=== PATIENT | female | born 1945 | race Caucasian/White ===

== ENCOUNTER 2017-04-07 07:35 | Day surgery (SDC) | payer MEDICARE ==
[~2017-04-07] VITALS: Ht 165.1 cm; Wt 59.4 kg
--- NOTE | ~2017-04-07 | HP ---
PATIENT: JULIA CORREA MEDICAL RECORD: [id number] ACCOUNT: [id number] LOCATION:[facility] : 45 ADMISSION DATE: 04/07/17 HISTORY AND PHYSICAL EXAMINATION History and Physical Addendum Has a history and physical on the chart. I have discussed the risks, possible complications and alternatives to the procedure with the patient. She elects to proceed. The history and physical examination is unchanged from the one in the office. TRANSINT:[id number] Voice Confirmation ID: [id number] DOCUMENT ID: [id number] RAMON ALEXIS MD CC: [id number] DICTATION DATE: 04/07/17 1006 PATHOLOGY TEACHER: 04/07/17 1041 [facility] [address] [id number]
--- NOTE | ~2017-04-07 | OP ---
PATIENT NAME: JULIA CORREA MEDICAL RECORD: [id number] :45 LOCATION:D.OPS ADMISSION DATE: SURGEON: RAMON ALEXIS MD DATE OF OPERATION: 04/07/2017 PREOPERATIVE DIAGNOSIS: Pedunculated polyp at 26 cm. POSTOPERATIVE DIAGNOSIS: Pedunculated polyp at 26 cm. PROCEDURES: 1. Total colonoscopy to cecum. 2. Snare polypectomy of a large pedunculated polyp 2.3 cm, at 26 cm from the anus. SURGEON: Ramon Alexis MD HEALTH OFFICER: None. BLOOD LOSS: Minimal. ANESTHESIA: General. COMPLICATIONS: None. OPERATIVE COURSE: The patient was conveyed to the operating room electively on 04/07/2017. This procedure was performed in the operating room as it was felt that the argon plasma organizational psychologist was going to need to be utilized. General anesthesia was induced by the anesthesia staff. The patient was placed in the Lowery position. A digital rectal examination was performed. A colonoscope was inserted through the anus. It was easily advanced to the cecum. The patient did have moderate left-sided diverticulosis. The prep was adequate. I slowly withdrew the endoscope. I irrigated and aspirated extensively. The pullback was greater than an 18-minute pullback. At 26 cm, a pedunculated polyp was noted. I advanced an endoscopic snare. I wrapped around the base of the polyp and then performed a snare polypectomy. I advanced the argon plasma organizational psychologist. I then ablated the base of the polyp. I then advanced an endoscopic retrieval net and grasped the polyp that had been removed under direct vision. It appeared that the entire polyp was removed. I then readvanced the endoscope to 26 cm. I withdrew it slowly. A retroflexed view was obtained in the rectum. I then unretroflexed the scope and removed it under direct vision. The patient was then extubated and conveyed to post-anesthesia care unit where she was in stable condition. She will be dismissed home and I will see her in the office in 2-3 weeks. TRANSINT:[id number] Voice Confirmation ID: [id number] DOCUMENT ID: [id number] OPERATIVE REPORT [id number] JULIA CORREA RAMON ALEXIS MD CC: LINDA SHAW MD and ALE BLOOM MD [id number] DICTATION DATE: 04/07/17 1011 AUTHOR AGENT: 04/07/17 1748 [facility] 04/07/17 [facility] [address] [id number]
[~2017-04-07 07:35] MED LIST: ADVAIR HFA [SP]12 GM INH; CALTRATE 600 M600 M1 PO; CENTRUM SILVER1 TA2 PO; DUONEB 2.5-0.5 M3 ML UPD; EZFE 200200 MG PO; NUCYNTA75 MG PO; PEPCID20 MG PO; POTASSIUM OTC PO; SYMBICORT 16010.2 GM INH; TUMS500 MG PO; ULTRAM50 MG PO; VALIUM5 MG; VALIUM5 MG PO; VITAMIN D10000 UNI1 PO
[2017-04-07 08:19] VITALS: BP 102/62; Ht 165.1 cm; Wt 59.4 kg
[2017-04-07 08:57] LABS: BASOPHILS 0.3 % (0-2); EOSINOPHILS 0.5 % (0-7); HEMATOCRIT 41.3 % (36.0-48.0); HEMOGLOBIN 12.9 g/dL (12-16); IMMATURE GRANULOCYTES 0.3 % (0-5); LYMPHOCYTES 20.3 % (15-50); MCH 25.7 pg (26.0-34.0); MCHC 31.2 g/dL (31.0-37.0); MCV 82.3 fL (80.0-100.0); MEAN PLATELET VOLUME 9.2 fL (7.4-10.4); NEUTROPHILS 69.6 % (40-80); PLATELET COUNT 337 10x3/uL (130-400); RBC 5.02 10x6/uL (4.00-5.40); RDW 15.3 % (11.5-14.5); WBC 7.8 10x3/uL (4.8-10.8)
[2017-04-07 09:05] LABS: APTT 30.4 SECONDS (22.8-39.4); INR 0.97 (0.85-1.17); PROTIME 12.7 SECONDS (11.6-15.0)
[2017-04-07 09:08] LABS: ALBUMIN 3.8 g/dL (3.4-5.0); ANION GAP 15.1 mmol/L (8-16); BILIRUBIN - TOTAL 0.4 mg/dL (0.2-1.3); CALCIUM 9.7 mg/dL (8.5-10.1); CARBON DIOXIDE 25.8 mmol/L (21.0-32.0); CREATININE - SERUM 1.2 mg/dL (0.6-1.3); POTASSIUM - SERUM 3.9 mmol/L (3.5-5.1); PROTEIN - SERUM 8.7 g/dL (6.4-8.2)
== END 2017-04-07 11:30 | disposition home or self-care (01) ==
LOC: D.OPS 07:35
PROVIDERS: Anesthesiology
DX: D12.5 Benign neoplasm of sigmoid colon (principal); Z88.0 Allergy status to penicillin; Z88.5 Allergy status to narcotic agent; Z79.899 Other long term (current) drug therapy; Z01.812 Encounter for preprocedural laboratory examination